=== PATIENT | female | born 1945 | race Caucasian/White ===

== ENCOUNTER 2016-09-21 18:30 | Emergency (ER) | payer MEDICARE ==
[~2016-09-21 18:30] MED LIST: ASPIRIN325 MG PO; BENTYL20 MG PO; CARAFATE1 GM PO; CATAPRES0.3 MG PO; CELEXA20 MG PO; CRESTOR10 MG PO; CYCLOBENZAPRINE10 MG PO; HYDRALAZINE HCL25 MG PO; K-DUR20 MEQ PO; LASIX20 MG PO; LOPRESSOR50 MG PO; MYRBETRIQ25 MG PO; PROTONIX40 MG PO; RESTORIL30 MG PO; SYNTHROID112 MCG PO
== END 2016-09-21 21:55 | disposition home or self-care (01) ==
LOC: ER 18:30
DX: N30.00 Acute cystitis without hematuria (principal); E87.6 Hypokalemia; I10 Essential (primary) hypertension; E07.9 Disorder of thyroid, unspecified; F17.210 Nicotine dependence, cigarettes, uncomplicated; Z90.49 Acquired absence of other specified parts of digestive tract; Z90.710 Acquired absence of both cervix and uterus; Z79.82 Long term (current) use of aspirin; Z79.899 Other long term (current) drug therapy; Z88.1 Allergy status to other antibiotic agents; Z95.5 Presence of coronary angioplasty implant and graft
CPT/HCPCS: 36415; 96365; J0696